=== PATIENT | male | born 1975 | race Caucasian/White ===

== ENCOUNTER 2018-10-20 02:55 | Emergency (ER) | payer MEDICARE ==
[~2018-10-20] VITALS: Ht 182.9 cm; Wt 84.0 kg
[2018-10-20 02:58] VITALS: BP 154/86
== END 2018-10-20 05:01 | disposition left against medical advice (07) ==
LOC: ER 02:55
DX: M79.671 Pain in right foot (principal); Z53.21 Procedure and treatment not carried out due to patient leaving prior to being seen by health care provider